=== PATIENT | female | born 1945 ===

== ENCOUNTER 2025-02-20 14:25 | Outpatient (AMB) | payer MEDICARE, OTHER, SELFPAY ==
--- OUTSIDE RECORDS SUMMARY | 2024-06-23 09:45 | XMS_ITS ---
Author Organization [facility] Address [address] [place] [address] Care Team Providers Care Manufacturing Helper Name Role Phone Neftali POSADAS, Franki Primary Care Provider Unavail Moshe Cevallos Unavailable [phone] Encounters Encounter Location Date Provider Diagnosis [facility] [address] [place] [id number] 06/23/2024 Moshe Ayon Plan Of Treatment Next Appt Details Provider Name:Moshe Ayon , 03/16/2025 02:00:00 PM, [address], [phone], Progress Notes * Charito PEREZ NDOB:1945 (79 yo F)Acc No.[id number]:06/23/2024 Progress Note Patient: Andreia CLINEtommy Shelley Provider: Lacey Ayon DPM :1945 A ge:79 Y S ex:Female Date:06/23/2024 Address:[address] [place], [place] [id number] Pcp:Franki Lindsay MD Subjective: * Chief Complaints: * * Medical History: Objective: * Vitals: Assessment: Plan: * Treatment: * Images: * The named appointment provid er may or may not be the originator of this progress note, and it is not deemed complete until electronically signed by the appointment provider. Sign off status: Pending * Provider: Lacey Ayon DPM Date: 08/24/2023 Generated for Denys rodgers/Henry/Sherryitting on: 0 02/20/2025 03:07 PM EDT
--- OUTSIDE RECORDS SUMMARY | 2025-02-20 15:07 | XMS_ITS | Clinical Summary ---
Author Organization [facility] [address] [facility] Address [address] [place] [address] Phone Care Team Providers Care Vocational Counselor Name Role Phone Franki Lindsay MD Primary Care Provider [phone] Social History Tobacco Use Types Packs/Day Years Used Date Smoking Tobacco: Never Assessed Comments Unknown Sex and Gender Information Value Date Recorded Sex Assigned at Not on file Legal Sex Female 8:42 AM EDT Gender Identity Not on file Sexual Orientation Not on file Plan of Treatment Health Maintenance Due Date Last Done Comments DTaP,Tdap,and Td Vaccines (1 - Tdap) 1966 Pneumococcal Vaccine: 50+ Ye ars (1 of 1 - PCV) 1997 Zoster Vaccines (1 of 2) 1997 RSV Immunization Adult Patie nts (1 - 1-dose 75+ series) 2022 COVID-19 Vaccine ( - 2023-2 5 season) 2024 Depression Screening 07/06/2024 Falls Risk Assessment 10/05/2024 Hepatitis C Screening 10/05/2024 Medicare Annual Wellness Visit 10/05/2024 Osteoporosis Screening (Bone Density Screening) 10/05/2024 Social Influencers of Health Screening 10/05/2024 Influenza Vaccine (#1) 2025 HIB Vaccines Aged Out No longer eligi ble based on patient's age to complete this topic HPV Vaccines Aged Out No longer eligi ble based on patient's age to complete this topic Hepatitis A Vaccines Aged Out No long er eligible based on patient's age to complete this topic Hepatitis B Vaccines Aged Out No long er eligible based on patient's age to complete this topic IPV Vaccines Aged Out No longer eligi ble based on patient's age to complete this topic MMR Vaccines Aged Out No longer eligi ble based on patient's age to complete this topic Meningococcal ACWY Vaccine Aged Out N o longer eligible based on patient's age to complete this topic Meningococcal B Vaccine Aged Out No l onger eligible based on patient's age to complete this topic RSV Immunization Patients Un jaden 20 months Aged Out No longer eligible b ased on patient's age to complete this topic Varicella Vaccines Aged Out No longer eligible based on patient's age to complete this topic Insurance MEDICARE [facility] MEDICARE Care Teams Vocational Counselor Relationship Specialty Start Date End Date Franki Lindsay MD [address] [place] [address] PCP - General Internal Medicine 10/05/24
== END 2025-02-20 14:28 | disposition home or self-care (01) ==
LOC: HO.HMGAL 14:25
PROVIDERS: Visit Provider Registered Nurse Emergency
DX: J30.89 Other allergic rhinitis (principal)
CPT/HCPCS: 95117; 95165

== ENCOUNTER 2025-04-10 13:42 | Outpatient (AMB) | payer MEDICARE, OTHER, SELFPAY ==
--- OUTSIDE RECORDS SUMMARY | 2025-03-16 10:00 | XMS_ITS ---
Author Organization [facility] Address [address] [place] [address] Care Team Providers Care Authorization Manager Name Role Phone Neftali POSADAS, Franki Primary Care Provider Moshe Leyva Unavailable [phone] REASON FOR VISIT Seen Sooner Encounters Encounter Location Date Provider Diagnosis [address] [phone] 03/16/2025 Moshe Ayon Plan Of Treatment Next Appt Details Provider Name:Fany Byerstommy blackman, 2025 02:45:00 PM, [address] [place] [address], [phone], Provider Name:Moshe Ayon , 08/30/2025 02:00:00 PM, [address] [place] [address], [phone], Progress Notes * Charito PEREZ NDOB:1945 (79 yo F)Acc No.[id number]:03/16/2025 Progress Note Patient: Andreia CLINEtommy Shelley Provider: Lacey Ayon DPM :1945 A ge:79 Y S ex:Female Date:03/16/2025 Address:[address] [place], [place] [phone] Pcp:Franki Lindsay MD Subjective: * Chief Complaints: * 1 . Seen Sooner. * Medical History: Objective: * Vitals: Assessment: Plan: * Treatment: * Images: * The named appointment provid er may or may not be the originator of this progress note, and it is not deemed complete until electronically signed by the appointment provider. Sign off status: Pending * Provider: Lacey Ayon DPM Date: 0 03/16/2025 Generated for Denys Franco on: 1 04:04 PM EDT
--- OUTSIDE RECORDS SUMMARY | 2025-04-05 07:15 | XMS_ITS ---
Author Organization [facility] Address [address] [place] [address] Care Team Providers Care Software Asset Manager Name Role Phone Neftali POSADAS, Franki Primary Care Provider Unavail able Moshe Ayon Unavailable [phone] Allergies Allergen (clinical drug ingredient) Drug/Non Drug Allergy documented on EMR Reaction Allergy Type Onset Date Status amoxicillin Amoxicillin rash, hives Drug Allergy A ctive atorvastatin Lipitor Unknown Drug Allergy Acti ve REASON FOR VISIT Wart(s), Foot pain Medications Medication SIG (Take, Route, Frequency, Duration) Notes Start Date End Date Status Multivitamins as directed Orally Active levETIRAcetam Active metFORMIN HCl 750 mg 1 tablet twice a day Active Claritin-D 12 Hour prn A ctive Clorazepate Dipotassium Active glipiZIDE ER Not-Gavin ing Sleep Aid prn Not-Taking Simvastatin 10 mg No t-Taking Rybelsus Active Januvia Not-Taking TEGretol Active Ammonium Lactate 12 % 1 application Exte rnally Twice a day; Duration: 30 days Active Somers 3 340 MG 1 capsule with meals Orally Three times a day; Duration: 30 day(s) Active Extra Depth Orthopedic Shoes (1 Pair) with Customized Heat Molded Multidensity Innersoles (3 Pair) as directed Dx: NIDDM (E11.9), Hammertoe Foot Deformity (M20.41,M20.42), Preulcerative Skin Lesion(s) (L85.1) 01/25/2024 Active Social History Tobacco Use: Social History Observation Description Date Details (start date - stop date) Never Smoker NA - NA Tobacco use other than smoking: Question Answer Notes Are you an other tobacco user? No Tobacco Control (Standard) Question Answer Notes Tobacco use: Nonsmoker Additional Findings: Tobacco non-user Current no nsmoker AUDIT-C (Standard) Question Answer Notes Did you have a drink containing alcohol in the p ast year? No Points 0 Interpretation Negative Vital Signs Height 5ft 6in in 04/05/2025 Weight 165 lbs 04/05/2025 BMI 26.63 kg/m2 04/05/2025 Blood pressure systolic 126 mm Hg 04/05/20 25 Blood pressure diastolic 60 mm Hg 025 Procedures Procedure Date Ordered Date Performed Result Body Sit e 28625-Zhla Destruction, 1-14 04/05/2025 N/A Encounters Encounter Location Date Provider Diagnosis [facility] [address] [place] [id number] 04/05/2025 Moshe Ayon Right foot pain M79. 671 ; Plantar wart B07.0 ; Pain in right ankle and joints of right foot M25.571 ; Bursitis of intermetatarsal bursa of right foot M77.51 and Metatarsalgia, right foot M77.41 Assessments Encounter Date Diagnosis (ICD Code) Assessment Notes Treatment Notes Treatment Clinical Notes Section Notes 04/05/2025 Right foot pain (ICD-10 - M79.671) 04/05/2025 Plantar wart (ICD-10 - B07.0) 04/05/2025 Pain in right ankle and joints of right foot (ICD-10 - M25.571) 04/05/2025 Bursitis of intermetatarsal bursa of right foot (ICD-10 - M77.51) 04/05/2025 Metatarsalgia, right foot (ICD-10 - M77.41) Plan Of Treatment Pending Test Test Name Order Date 38006-Agta Destruction, 1-14 04/05/2025 Next Appt Details Follow Up: prn, Reason: Provider Name:Fany blackman, 2025 02:45:00 PM, [address], [phone], Provider Name:Moshe Ayon , 08/30/2025 02:00:00 PM, [address], [phone], Procedure Notes * Category Sub-Category Detail Notes Wart Treatment Procedure Verruca, as desc ribed in exam, were debrided to pin- point bleeding margins with sterile 15 surgical blade, silver nitrate chemocautery applied, recomm. immune-boosting meds such as zinc, recomm. follow up with topical chemosurgical agents, recomm. Wartstick 40 percent Salicylic acid application under occlusion as directed, Pt defers any other forms of tx - 60239 Progress Notes * Charito PEREZ NDOB:1945 (79 yo F)Acc No.[id number]:04/05/2025 Progress Note Patient: Charito CLINE N Provider: Lacey Ayon DPM :1945 A ge:79 Y S ex:Female Date:04/05/2025 Address:[address] [place], [place] [phone] Pcp:Franki Lindsay MD Subjective: * Chief Complaints: * W art(s)Foot pain * HPI: S kin problems: Pt States PCP Visit: D ATE 0 01/03/2025 F oot Pain: Location: B ottom, Forefoot, RIGHT. Duration: s everal weeks. Course: w orse. Aggravated: a ny pressure, standing, walking. Treatments: r est/alter normal daily activity. * ROS: G eneral/Constitutional: Nausea d enies. V omiting d enies. H bhavesh Thirst d enies. L oss appetite d enies. C hills d enies. F atigue d enies.?Fever d enies. N ight Sweats d enies. U nexplained weight loss d enies. O phthalmologic: Blurred vision d enies. R ed eye d enies. ? H EENTM: Dentures d enies. D izziness d enies. G lasses/contacts d enies. R etinopathy d enies. B lurred/double vision d enies. T MJ?denies. D ischarge/drainage d enies. I mplants d enies. H aaron of hearing denies. D ifficulty chewing/swallowing/speaking d enies. N ose bleeds d enies.?Sore mouth d enies. S wollen glands d enies. R espiratory: On Oxygen d enies. P neumonia/pleurisy d enies.?Bronchitis d enies. E mphysema d enies. C oughing a dmits. C ough blood?denies. S hortness of breath d enies. W heezing d enies. C ardiovascular: Pacemaker d enies. M CLAIMS CORRESPONDENCE CLERK d enies. W PW d enies. C HF d enies. H eart attack d enies. S eptal defect d enies. R apid beat d enies. C hest pain d enies. A trial Fib. d enies. M urmur/Palpitations d enies. G astrointestinal: Hemorrhoids d enies. S tomach/Abdominal pain d enies. D ark blood stool d enies. I rritable bowel d enies. C onstipation d enies. D iarrhea d enies. V omiting d enies. H ematology: Swelling d enies. B ruising d enies. B leeding problem d enies. G enitourinary: Blood urine d enies. F requent/Painfu/urination/bladder control d enies. K idney stones d enies. I nfection (UTI) d enies. N ephropathy d enies. M usculoskeletal: Hammertoes a dmits. B unions a dmits. S coliosis/kyphosis d enies. M uscle cramps / walking d enies. G eneralized aches and pains?denies. W eakness d enies. I nteg.: Pederson d enies. S cars d enies. C orns/calluses?admits. I ngrown nails a dmits. P ainful nails a dmits. R ashes d enies. N eurologic: Difficulty sleeping d enies. B ipolar d enies. B rain disorder d enies. B alance trouble d enies. C onfusion d enies. F ainting/blackouts d enies. H eadache d enies. T remors d enies. * Medical History: * Surgical History: c esarean section * Hospitalization/Major Diagno stic Procedure: [facility] [place] [place] for having [place] [place] * Family History: M other: , poor circulation, diagnosed with Diabetic - NIDDM, Unspecified heart disease, Unspecified cerebral artery occlusion with cerebral infarction, Family history of arthritis. F ather: , diagnosed with Other malignant neoplasm of unspecified site. S on(s): alive.?Siblings: diagnosed with Other malignant neoplasm of unspecified site, Diabetic - NIDDM, Family history of arthritis. 1 son(s) . . * Social History: T obacco Use: T obacco use other than smoking A re you an other tobacco user? N o Tobacco Control (Standard) T obacco use: N onsmoker A dditional Findings: Tobacco non-user C urrent nonsmoker D rugs/Alcohol: D rugs H ave you used drugs other than those for medical reasons in the past 12 months? N o M iscellaneous: C affeine: yes, frequency:. Children: yes. Exercise: yes. Marital status: . Occupation: retired. D rug/Alcohol: A ALEXSANDER-C (Standard) D id you have a drink containing alcohol in the past year? N o P oints 0 I nterpretation N egative * Medications: T akingRybelsus Claritin-D 12 Hour , Notes to Pharmacist: prnClorazepate Dipotassium levETIRAcetam metFORMIN HCl 750 mg 1 tablet twice a day Multivitamins Capsule as directed Orally Somers 3 340 MG Capsule Delayed Release 1 capsule with meals Orally Three times a day TEGretol Ammonium Lactate 12 % Cream 1 application Externally Twice a day Extra Depth Orthopedic Shoes (1 Pair) with Customized Heat Molded Multidensity Innersoles (3 Pair) as directed Dx: NIDDM (E11.9), Hammertoe Foot Deformity (M20.41,M20.42), Preulcerative Skin Lesion(s) (L85.1) Taking Rybelsus Taking Claritin-D 12 Hour , Notes to Pharmacist: prnTaking Clorazepate Dipotassium Taking levETIRAcetam Taking metFORMIN HCl 750 mg 1 tablet twice a day Taking Multivitamins Capsule as directed Orally Taking Somers 3 340 MG Capsule Delayed Release 1 capsule with meals Orally Three times a day Taking TEGretol Taking Ammonium Lactate 12 % Cream 1 application Externally Twice a day Taking Extra Depth Orthopedic Shoes (1 Pair) with Customized Heat Molded Multidensity Innersoles (3 Pair) as directed Dx: NIDDM (E11.9), Hammertoe Foot Deformity (M20.41,M20.42), Preulcerative Skin Lesion(s) (L85.1) Not-Taking/PRNSimvastatin 10 mg glipiZIDE ER Sleep Aid prn Januvia Medication List reviewed and reconciled with the patientNot-Taking/PRN Simvastatin 10 mg Not-Taking/PRN glipiZIDE ER Not-Taking/PRN Sleep Aid prn Not-Taking/PRN Januvia Medication List reviewed and reconciled with the patient * Allergies: L ipitorAmoxicillin: rash, hivesyes[Allergies Verified] Objective: * Vitals: H t: 5ft 6in, Wt:165, BMI: 26.63, Shoe size:9.5, BP:126/60mm Hg, BS:not taken, Ht- cm: 167.64 cm, Wt-k.84 kg. * P ast Orders: L ab:HEMOGLOBIN A1C (GLYCOHEMOGLOBIN) (Order Date - 01/03/2025) (Collection Date & Time - 01/04/2025 01:06 PM) Value Reference Range HEMOGLOBIN A1C % (HH) 5.7 * Examination: O phthalmology Referral: DIABETES EYE EXAM P rocedure Performed: Y yevgeniy D ate of Exam Performed 0 09/08/2024 D iabetic Retinopathy Screening: Y es R etinal Screening Performed: Y es F indings of Diabetic Eye Exam: n o retinopathy D ermatologic: VERRUCA: C ont to reveal a Single , multi-loculated , mosaic, round, raised, flat-topped, petechial bleeding papule(s), with cauliflower appearance and interruption of skin lines, with pain to lateral compression, and size estimated at 5mm diameter, plantar Forefoot, RIGHT. O rthopedic: MUSCLE STRENGTH: 5 /5 all groups in a symmetrical fashion, B/L. GAIT ABNORMALITY: a ntalgic. MPJ PATHOLOGY: Pain, swelling, and inflammation to plantar ( 5th), MPJ(s), RIGHT, No MPJ pain with ROM, [ - ] Ecchymosis. FOOTWEAR EVALUATION: s hoe gear properties exacerbate patients complaints in relation to their foot/toe deformity. N eurological: TINEL'S COMPRESSION: Negative tarsal tunnel, balta pedis, and medial calcaneal nerves, Right. N euroma Pain: PALPATION: N o interspace pain noted on palpation. ? Assessment: * Assessment: 1. P lantar wart - B07.0 (Primary) S pecify :RIGHT 2 . R ight foot pain - M79.671 3 . P ain in right ankle and joints of right foot - M25.571 4 . B ursitis of intermetatarsal bursa of right foot - M77.51 5 . M etatarsalgia, right foot - M77.41 S pecify :Acute Problem, Uncomplicated (3) Plan: * Treatment: * Procedures: W art Treatment: Procedure V erruca, as described in exam, were debrided to pin-point bleeding margins with sterile 15 surgical blade, silver nitrate chemocautery applied, recomm. immune-boosting meds such as zinc, recomm. follow up with topical chemosurgical agents, recomm. Wartstick 40 percent Salicylic acid application under occlusion as directed, Pt defers any other forms of tx - 95782. * Procedure Codes: 1 7110 Wart Destruction, 1-14 * Preventive Medicine: Counseling: D iscussion: - 13: Office or other outpatient visit for the evaluation and management of an established patient, which required a medically appropriate history and/or examination and LOW level of DECISION MAKING for: 1 STABLE ACUTE UNCOMPLICATED PROBLEM, 2 OR MORE MINOR PROBLEMS, OR 1 STABLE CHRONIC PROBLEM, THAT POSE(S) A LOW RISK FOR MORBIDITY/MORTALITY. The visit on the day of the encounter encompassed interpreting the data and educating the patient as to the nature of their condition, treatment options available according to their individual PMH, meds, allergies, and overall health/living conditions, as well as any potential risks or complications that may occur from a failure to adhere to, and participate in, the recommended course of therapy. The discussion included a complete verbal, and/or written explanation of the examination results, any x-rays taken, the proposed diagnosis, and outline of the treatment plan. A schedule for future care needs was also explained. The patient verbalized an understanding of the instructions at this time and agreed to be an active participant in their treatment. If the patient should think of any questions or concerns after the visit, I have encouraged the patient to call the office. M etatarsalgea: I explained to the patient the possible etiologies of their Metatarsalgea Foot pain, including foot type/shoegear/activity level/exercise routine and the risks/benefits of all the different treatment options for pain including: No treatment at all, Rest, Ice, NSAIDs(only if well tolerated after meals), New/supportive Shoe gear, Strappings and Tapings, Foot/Ankle AFO Bracing, Stretching exercises, Deep Tissue Massage, Arch support/shoe inserts, Custom orthoses, Topical analgesics including Aspercream/Voltaren gel, Physical Therapy, Cortisone injection therapy, EPAT/ESWT. Advantages and disadvantages of each option were discussed and the patients questions re: shoe gear, custom vs prefabricated inserts, activity level, PO vs Topical medications (and their respective potential complications/drug interactions/side effects), and consistency in home treatment regimens for optimal success were answered to their verbally confirmed satisfaction. O rthotics: I explained to the patient the benefits of OT use. I explained that orthoses are medically necessary to decrease the foot pain through proper mechanical control, support of their foot, decrease pain under the painful metatarsal by supplementing the soft tissue, cushion the forefoot by supplementing the soft tissue, Prefabricated orthoses ( FREEDOM - C ), were dispensed. The inserts were comfortably fit to the patients feet in both weight-bearing and non-weight bearing attitudes. The patient was instructed to increase the amount of time they were wearing the inserts, starting with one hour the first day and gradually increasing the amount of time worn until they are using them multimedia manager and in all activities. They were asked to call the office if any signs of irritation were noted such as redness, blistering or callous formation. Instuctions were given for their usage and proper break-in/wear/care. Pt expressed comfort with and tolerance to inserts dispensed. P .R.I.C.E.: T he patient was counseled on the use of P.R.I.C.E. and NSAIDS (if well tolerated) to aid in the recovery from their painful condition, Recommended Topical analgesics including Aspercream/Biofreeze/Voltaren gel as directed. P odiatric Surgery Counseling: S urgical procedures to treat the patients foot problem were discussed. We reviewed the risks of the procedure (described below) vs not having the procedure (persistent pain, deformity, risk for skin ulceration/infection, loss of toe). We discussed the potential procedure complications including, but not limited to: pain, swelling, bleeding, scarring, numbness, infection, delayed/non healing, floppy/unstable/shorthened toe, recurrence, failure of the procedure, overcorrection leading to plantarflexed/downward positioned toe, recurrence, need for further surgery, as well as the possibility for loss of the toe itself. We discussed the use of IV/Local anesthesia, and the usual post-op course for healing. No guarentees were given. The patient verbally indicated a full understanding of the above conversation, and any other of their questions were answered to their satisfaction. S hoe Gear Counseling: T he patient and I reviewed the types of shoes they should be wearing. My recommendation included obtaining a well-fitted shoe with a good supportive, non-foldable nor twistable sole, plenty of toe/room for the forefoot, and proper arch support. Based on todays examination, I recommended the patient look for new shoes, by having their feet professionally measured. We discussed that generally the best time of the day for a shoe fitting is the afternoon. Different shoes types and brands to best match the patients occupation and vocation were discussed. Specific brand selection will be up to the patient, their individual foot condition/deformities, and fit. The patient and I reviewed the standard new shoe break in period by wearing them for a few hours a day while checking for redness or sores as wear time is increased. The patient verbally confirmed to understanding the information discussed. S teriod Injection: I explained that a steroid and local anesthetic injections are administered to relieve pain and inflammation and thereby meant to improve function. I explained the possible complications including but not limited to signs/symptoms of steroid flare, infection, bruising, atrophy, discoloration of skin, change/deviation in toe position, and that additional injections may be necessary, cortisone post- injection informative educational handout was dispensed to and reviewed with the patient, In order to prevent any compromise of an effective immune response, it was recommended the patient refrain from any vaccine therapy for the month before or after injection. Patient verbally confirmed understanding the previously mentioned protocol. Screening/Special Tests: F all Risk Screening: N o falls in the past year F ALLS: Screening for Future Fall Risk Have you had any falls with injury in the past year? N o * Follow Up: p rn * Images: * Sign off status: Completed true * Provider: Lacey Ayon DPM Date: Generated for Denys rodgers/Henry/Zahraa on: 04:05 PM EDT History and Physical Notes * HPI (History of Present Illness) Category Sub-Category Detail Notes Category Not es Skin problems Pt States PCP Visit: DATE: 01/03/2025 Foot Pain Location: Bottom, Forefoot, RIGHT Duration: several weeks Course: worse Aggravated: any pressure, standi ng, walking Treatments: rest/alter normal da bennett activity Examination Category Sub-Category Detail Notes Category Not es Neuroma Pain PALPATION: No interspace pa in noted on palpation Neurological TINEL'S COMPRESSION: Negative ta rsal tunnel, balta pedis, and medial calcaneal nerves, Right Dermatologic VERRUCA: Cont to reveal a Single , multi-loculated , mosaic, round, raised, flat-topped, petechial bleeding papule(s), with cauliflower appearance and interruption of skin lines, with pain to lateral compression, and size estimated at 5mm diameter, plantar Forefoot, RIGHT Orthopedic GAIT ABNORMALITY: antalgic FOOTWEAR EVALUATION: shoe gear propertie s exacerbate patients complaints in relation to their foot/toe deformity MPJ PATHOLOGY: Pain, swelling, and inflammation to plantar ( 5th), MPJ(s), RIGHT, No MPJ pain with ROM, [ - ] Ecchymosis MUSCLE STRENGTH: 5/5 all groups in a symmetrical fashion, B/L Ophthalmology Referral DIABETES EYE EXAM Procedure Perform ed:: Yes Date of Exam Performed: 09/08/2024 Diabetic Retinopathy Screening:: Yes Retinal Screening Performed:: Yes Findings of Diabetic Eye Exam:: no retin opathy
--- OUTSIDE RECORDS SUMMARY | 2025-04-10 16:05 | XMS_ITS | Patient Health Record ---
Author Organization [facility] Address [address] [place] [address] Care Team Providers Care Speaking Unit Assembler Name Role Phone Neftali POSADAS, Franki Primary Care Provider Unavail able Moshe Ayon Unavailable [phone] Fany Crooks Unavailable [phone] Allergies Allergen (clinical drug ingredient) Drug/Non Drug Allergy documented on EMR Reaction Allergy Type Onset Date Status amoxicillin Amoxicillin rash, hives Drug Allergy A ctive atorvastatin Lipitor Unknown Drug Allergy Acti ve Results Component Value Reference Range Notes HEMOGLOBIN A1C (GLYCOHEMOGLO BIN) Reviewed date:09/21/2024 01:02:28 PM Interpretation: Performing Lab: Notes/Report: HEMOGLOBIN A1C % (HH) 5.7 HEMOGLOBIN A1C (GLYCOHEMOGLO BIN) Reviewed date:02/21/2025 01:06:55 PM Interpretation: Performing Lab: Notes/Report: HEMOGLOBIN A1C % (HH) 5.7 Reason For Referral No Information Medications Medication SIG (Take, Route, Frequency, Duration) Notes Start Date End Date Status Rybelsus Active levETIRAcetam Active metFORMIN HCl 750 mg 1 tablet twice a day Active Claritin-D 12 Hour prn A ctive Clorazepate Dipotassium Active TEGretol Active Ammonium Lactate 12 % 1 application Exte rnally Twice a day; Duration: 30 days Active Multivitamins as directed Orally Active [place] 3 340 MG 1 capsule with meals Orally Three times a day; Duration: 30 day(s) Active glipiZIDE ER Not-Gavin ing Sleep Aid prn Not-Taking Extra Depth Orthopedic Shoes (1 Pair) with Customized Heat Molded Multidensity Innersoles (3 Pair) as directed Dx: NIDDM (E11.9), Hammertoe Foot Deformity (M20.41,M20.42), Preulcerative Skin Lesion(s) (L85.1) 01/25/2024 Active Simvastatin 10 mg No t-Taking Januvia Not-Taking Immunizations Vaccine Route Administration Date Status Comme nts Influenza Unknown 04/05/2015 Administered Influenza Unknown 05/20/2016 Administered Influenza Unknown 05/14/2017 Administered Influenza Unknown 04/19/2018 Refused Influenza Unknown 05/14/2018 Administered Influenza Unknown 02/21/2025 Refused Pneumococcal Unknown 04/05/2015 Administered COVID-19 Pfizer BioNTech Vaccine Unknown 10/10/2020 Adm inistered Social History Tobacco Use: Social History Observation [...] ast year? No Points 0 Interpretation Negative Problems Problem Type SNOMED Code ICD Code Onset Dates Problem Status W/U Status Risk Notes Problem Acquired hammer toe of right foot (250542875686049 5) Other hammer toe(s) (acquired), right foot (M20.41) Active confirmed Problem Acquired hammer toe of left foot (099290823134530 3) Other hammer toe(s) (acquired), left foot (M20.42) Active confirmed Problem Type II diabetes mellitus without complication (299115365) Type 2 diabetes mellitus without complication (E11.9) Active confirmed Problem Verruca pedis (81939054) Verruca pedis (B07.0) Active confirmed Vital Signs Heart Rate 91 /min 12/15/2024 Blood pressure diastolic 60 mm Hg 04/05/2025 Height 5ft 6in in 04/05/2025 Blood pressure systolic 126 mm Hg 04/05/2025 Weight 165 lbs 04/05/2025 BMI 26.63 kg/m2 04/05/2025 Procedures Procedure Date Ordered Date Performed Result Body Sit e 39767-WWLVZRV NAIL, 6 OR MORE 06/13/2024 N/A 39869-Nsjh Destruction, 1-14 06/13/2024 N/A 03769-BDUUTMO NAIL, 6 OR MORE 09/21/2024 N/A 11254-Prfu Destruction, 1-14 09/21/2024 N/A 98608-ZKYXVMA NAIL, 6 OR MORE 12/15/2024 N/A 80379-Kzii Destruction, 1-14 12/15/2024 N/A 26487-ZCHDMGK NAIL, 6 OR MORE 02/21/2025 N/A 00880-Ytxv Destruction, 1-14 02/21/2025 N/A 51467-Swvo Destruction, 1-14 04/05/2025 N/A Encounters Encounter Location Date Provider Diagnosis [address] [address] 06/13/2024 Moshe Nany Pain of toe of right foot M79.674 ; Onychomycosis B35.1 ; Pain of toe of left foot M79.675 ; Type 2 diabetes mellitus without complication E11.9 ; Verruca pedis B07.0 and Right foot pain M79.[address] [address] 09/21/2024 Moshe Nany Pain of toe of right foot M79.674 ; Onychomycosis B35.1 ; Pain of toe of left foot M79.675 ; Type 2 diabetes mellitus without complication E11.9 ; Verruca pedis B07.0 ; Right foot pain M79.671 ; Other hammer toe(s) (acquired), right foot M20.41 and Other hammer toe(s) (acquired), left foot M20.[address] [address] 12/15/2024 Moshe Nany Pain of toe of right foot M79.674 ; Pain of toe of left foot M79.675 ; Onychomycosis B35.1 ; Type 2 diabetes mellitus without complication E11.9 ; Verruca pedis B07.0 and Right foot pain M79.[address] [address] 02/21/2025 Fany Crooks Pain of toe of right foot M79.674 ; Pain of toe of left foot M79.675 ; Onychomycosis B35.1 ; Type 2 diabetes mellitus without complication E11.9 ; Verruca pedis B07.0 and Right foot pain M79.671 [facility] [address] [facility] [address] [place] [address] 04/05/2025 Moshefarrah CarmonaNany Right foot pain M79.671 ; Plantar wart B07.0 ; Pain in right ankle and joints of right foot M25.571 ; Bursitis of intermetatarsal bursa of right foot M77.51 and Metatarsalgia, right foot M77.41 [facility] [place] [address] [place] [address] 05/06/2024 Moshe Ayon Assessments Encounter Date Diagnosis (ICD Code) Assessment Notes Treatment Notes Treatment Clinical Notes Section Notes 06/13/2024 Pain of toe of right foot (ICD-10 - M79.674) 12/15/2024 Pain of toe of right foot (ICD-10 - M79.674) 02/21/2025 Pain of toe of right foot (ICD-10 - M79.674) 04/05/2025 Plantar wart (ICD-10 - B07.0) 04/05/2025 Right foot pain (ICD-10 - M79.671) 09/21/2024 Pain of toe of right foot (ICD-10 - M79.674) 09/21/2024 Pain of toe of left foot (ICD-10 - M79.675) 09/21/2024 Onychomycosis (ICD-10 - B35.1) 04/05/2025 Pain in right ankle and joints of right foot (ICD-10 - M25.571) 02/21/2025 Pain of toe of left foot (ICD-10 - M79.675) 02/21/2025 Onychomycosis (ICD-10 - B35.1) 12/15/2024 Onychomycosis (ICD-10 - B35.1) 12/15/2024 Pain of toe of left foot (ICD-10 - M79.675) 06/13/2024 Pain of toe of left foot (ICD-10 - M79.675) 06/13/2024 Onychomycosis (ICD-10 - B35.1) 06/13/2024 Type 2 diabetes mellitus without complication (ICD-10 - E11.9) 12/15/2024 Type 2 diabetes mellitus without complication (ICD-10 - E11.9) 02/21/2025 Type 2 diabetes mellitus without complication (ICD-10 - E11.9) 04/05/2025 Bursitis of intermetatarsal bursa of right foot (ICD-10 - M77.51) 09/21/2024 Type 2 diabetes mellitus without complication (ICD-10 - E11.9) 09/21/2024 Verruca pedis (ICD-10 - B07.0) 04/05/2025 Metatarsalgia, right foot (ICD-10 - M77.41) 02/21/2025 Verruca pedis (ICD-10 - B07.0) 12/15/2024 Verruca pedis (ICD-10 - B07.0) 06/13/2024 Verruca pedis (ICD-10 - B07.0) 06/13/2024 Right foot pain (ICD-10 - M79.671) 02/21/2025 Right foot pain (ICD-10 - M79.671) 12/15/2024 Right foot pain (ICD-10 - M79.671) 09/21/2024 Right foot pain (ICD-10 - M79.671) 09/21/2024 Other hammer toe(s) (acquired), right foot (ICD-10 - M20.41) Patient Educated with: DIABETIC FOOT CARE INSTRUCTIONS. pdf (DIABETIC FOOT CARE INSTRUCTIONS. pdf) 09/21/2024 Other hammer toe(s) (acquired), left foot (ICD-10 - M20.42) 06/13/2024 Other Plan Of Treatment Pending Test Test Name Order Date Hemoglobin A1c 10/04/2014 09187-FCZQBGJ NAIL, 6 OR MORE 04/04/2015 59922-JAOUPZI NAIL, 6 OR MORE 10/04/2014 83113-WOCWEYM NAIL, 6 OR MORE 08/06/2015 29460-SVFWKUG NAIL, 6 OR MORE 05/21/2016 36700-KLZLAFP NAIL, 6 OR MORE 11/19/2016 82892-JDKOUOK NAIL, 6 OR MORE 02/18/2017 96315-FIPLMVL NAIL, 6 OR MORE 05/20/2017 62481-JWGHNTP NAIL, 6 OR MORE 08/19/2017 34088-ILUVPUN NAIL, 6 OR MORE 11/04/2017 05979-HJXXQSA NAIL, 6 OR MORE 01/27/2018 86774-XRPUVMF NAIL, 6 OR MORE 04/09/2011 95346-LOSZPOT NAIL, 6 OR MORE 10/08/2011 87792-GFEPPLV NAIL, 6 OR MORE 09/22/2012 56170-UZFRLRB NAIL, 6 OR MORE 03/23/2013 80363-HLYBEEF NAIL, 6 OR MORE 06/22/2013 70685-BSEZNLF NAIL, 6 OR MORE 12/24/2011 07355-ADORGCO NAIL, 6 OR MORE 12/21/2013 93320-QTWLKNO NAIL, 6 OR MORE 04/05/2014 19386-INDEAYC NAIL, 6 OR MORE 07/12/2014 12472-EOAQNCU NAIL, 6 OR MORE 07/22/2018 61339-TATCSZW NAIL, 6 OR MORE 12/06/2018 00346-QYUVMGM NAIL, 6 OR MORE 02/16/2019 25240-GWKUYLK NAIL, 6 OR MORE 05/04/2019 87592-KEXUATG NAIL, 6 OR MORE 07/20/2019 29926-KKEXBIV NAIL, 6 OR MORE 12/07/2019 57469-LZPSAVG NAIL, 6 OR MORE 02/23/2020 25284-MNMRWEQ NAIL, 6 OR MORE 05/03/2020 02000-OKRHYUS NAIL, 6 OR MORE 07/18/2020 74103-YZHNIEX NAIL, 6 OR MORE 10/31/2020 91013-OWSDDOC NAIL, 6 OR MORE 01/09/2021 84277-AXOVPAX NAIL, 6 OR MORE 04/10/2021 25109-TGNCXDI NAIL, 6 OR MORE 06/12/2021 60748-QSDMFVI NAIL, 6 OR MORE 08/28/2021 78938-QNHZODE NAIL, 6 OR MORE 11/06/2021 54060-QOORALP NAIL, 6 OR MORE 03/26/2022 49296-TYYPSFY NAIL, 6 OR MORE 06/05/2022 22167-VYRKHTO NAIL, 6 OR MORE 08/18/2022 23850-MCMTYXG NAIL, 6 OR MORE 11/03/2022 63233-TENUQVX NAIL, 6 OR MORE 06/11/2023 13995-YYPNDSB NAIL, 6 OR MORE 09/21/2024 88165-HFONAGA NAIL, 6 OR MORE 12/15/2024 61104-CHAWCXL NAIL, 6 OR MORE 02/21/2025 67220-FHOHMYR NAIL, 6 OR MORE 09/23/2018 66950-QORVRZW NAIL, 6 OR MORE 04/19/2018 38882-OFZFUFT NAIL, 6 OR MORE 02/20/2016 73211-RRPQQLI NAIL, 6 OR MORE 11/21/2015 05765-PDZVDHA NAIL, 6 OR MORE 09/28/2013 46592-EQAYJHH NAIL, 6 OR MORE 12/22/2012 98350-YWXXZAA NAIL, 6 OR MORE 06/23/2012 48104-SDSSHKF NAIL, 6 OR MORE 03/24/2012 19478-USSSZXQ NAIL, 6 OR MORE 07/09/2011 53455-YMWPKQB NAIL, 6 OR MORE 01/15/2022 74014-CAFTVLO NAIL, 6 OR MORE 01/12/2023 69364-UMMEEKK NAIL, 6 OR MORE 06/13/2024 70063-AKXYTLK NAIL, 6 OR MORE 08/26/2023 21648-HAJYCQV NAIL, 6 OR MORE 08/20/2016 74103-AOVNMNL NAIL, 6 OR MORE 01/03/2015 03627-KGJTJLK NAIL, 6 OR MORE 01/25/2024 24729-KJASFNN NAIL, 6 OR MORE 03/23/2023 39342-Byhn Destruction, -03/23/2023 08922-Ghtv Destruction, -01/25/2024 38668-Ztxr Destruction, -01/03/2015 52524-Qpci Destruction, -08/20/2016 67631-Wgwd Destruction, -08/26/2023 67904-Xmmv Destruction, -06/13/2024 96617-Lawn Destruction, 07-1901/12/2023 47949-Lxka Destruction, -09/28/2013 52165-Cevp Destruction, -14 07/09/2011 07207-Necr Destruction, -01/15/2022 20147-Bnju Destruction, -03/24/2012 65524-Ghll Destruction, 07-1906/23/2012 66861-Rwyl Destruction, 07-1912/22/2012 19317-Qvcn Destruction, 07-1908/28/2021 55877-Wuyx Destruction, 07-1904/19/2018 52570-Fmpq Destruction, 07-1911/21/2015 75140-Ngfh Destruction, 07-1902/20/2016 75611-Sngl Destruction, 07-1909/23/2018 19476-Lcne Destruction, 07-1902/21/2025 21376-Fxcn Destruction, 07-1904/05/2025 53939-Uoya Destruction, 07-1912/15/2024 16272-Cmky Destruction, 07-1909/21/2024 12614-Yjfw Destruction, 07-1906/11/2023 81021-Cxfp Destruction, 07-1911/03/2022 80686-Cecs Destruction, 07-1908/18/2022 78957-Bydg Destruction, 07-1906/05/2022 21776-Zshr Destruction, 07-1907/10/2022 77839-Sgen Destruction, 07-1903/26/2022 38333-Togl Destruction, 07-1911/06/2021 52650-Laip Destruction, 07-1904/10/2021 60764-Fcgi Destruction, 07-1906/12/2021 74999-Weet Destruction, 07-1910/31/2020 47613-Tlyv Destruction, 07-1901/09/2021 67039-Cpyl Destruction, 07-1905/03/2020 77485-Zvdk Destruction, 07-1907/18/2020 71836-Gwmh Destruction, 07-1902/23/2020 43752-Ulpq Destruction, 07-1912/07/2019 64353-Yqjr Destruction, 07-1907/20/2019 50521-Bhvz Destruction, 07-1905/04/2019 46194-Otrw Destruction, 07-1902/16/2019 27093-Xdvp Destruction, 07-1907/22/2018 59996-Ydvj Destruction, 07-1912/06/2018 04600-Goif Destruction, 07-1907/12/2014 22792-Grom Destruction, 07-1912/21/2013 89626-Tyta Destruction, 07-1912/24/2011 07051-Jmlb Destruction, 07-1906/22/2013 82799-Looo Destruction, 07-1903/23/2013 07485-Fcyn Destruction, 07-1909/22/2012 83571-Btgc Destruction, 07-1910/08/2011 45393-Zuaf Destruction, 07-1911/19/2016 55753-Pmcv Destruction, 07-1901/27/2018 01186-Vqgl Destruction, 07-1911/04/2017 45924-Mpzg Destruction, 07-1908/19/2017 84267-Nelg Destruction, 07-1905/20/2017 61371-Xgbw Destruction, 07-1902/18/2017 09599-Ujca Destruction, 07-1904/09/2011 66944-Tqio Destruction, 07-1908/06/2015 81115-Hjqz Destruction, 07-1905/21/2016 51365-Huwh Destruction, 07-1910/04/2014 68589-Poys Destruction, 07-1904/05/2014 33236-Alpq Destruction, 07-1904/04/2015 20598-Thnrwtgd Plate 04/04/2015 93291-Auyrqvfb Plate 10/04/2014 67666-Ngsedjln Plate 08/06/2015 96898-Fhmxzjuc Plate 05/21/2016 42777-Hnmboujp Plate 01/27/2018 89990-Onmcjmga Plate 07/22/2018 04273-Trklvjbz Plate 04/09/2011 12532-Bewtdqru Plate 10/08/2011 97032-Rwfulpex Plate 09/22/2012 43495-Cuylqura Plate 03/23/2013 37352-Rojbaoki Plate 06/22/2013 64705-Xnuhdmuo Plate 12/24/2011 18289-Grrrsilu Plate 12/21/2013 02679-Ydtdtqid Plate 04/05/2014 64623-Irbtbenh Plate 07/12/2014 89330-Ztijktev Plate 12/06/2018 11285-Vdfkjdoy Plate 02/23/2020 18380-Hbagqynh Plate 05/03/2020 61293-Nhdnbgoz Plate 07/18/2020 09589-Mbchamuk Plate 01/09/2021 91617-Hdesajql Plate 10/31/2020 55046-Zhjuigxr Plate 04/10/2021 72106-Vfwpirom Plate 06/12/2021 49426-Sbgfoice Plate 11/06/2021 84523-Bbfzgexd Plate 08/28/2021 97832-Anmdtrhs Plate 03/26/2022 41732-Ltdqqswe Plate 04/19/2018 94771-Bawroqoy Plate 09/23/2018 93098-Yhvmells Plate 02/20/2016 90134-Yyyllqnk Plate 11/21/2015 53073-Nrpeelna Plate 09/28/2013 49157-Ixjzqvbg Plate 12/22/2012 64446-Lyxpzoyr Plate 06/23/2012 76874-Nigxgmmo Plate 03/24/2012 46791-Pfbscmrq Plate 01/15/2022 51057-Tatkgyne Plate 08/20/2016 03836-Ahibahiq Plate 01/03/2015 55568-Vdolonia Plate 01/25/2024 84005-Ypuaiigu Plate Each Additional 07/2014 76338-Wpfiymwk Plate Each Additional 19190-Nbueljpx Plate Each Additional 39945-Pglmldoz Plate Each Additional 04107-Rewcfpwf Plate Each Additional 37718-Oezcbwtg Plate Each Additional 61234-Epdtlmce Plate Each Additional 43740-Sydninlo Plate Each Additional 01/2015 85418-Czwytxtr Plate Each Additional 07/2013 07573-Ullzbfma Plate Each Additional 87188-Zrnkzlbv Plate Each Additional 96864-Yuvszgdg Plate Each Additional 21249-Sxgaxluz Plate Each Additional 47346-Ymutogmn Plate Each Additional 65322-Ckqtbttb Plate Each Additional 07/2015 89769-Mmvvmiwd Plate Each Additional 07/2014 76482-Sbqjgldb Plate Each Additional 95793- Debride <25 sq cm 04/04/2015 11415- Debride <25 sq cm 04/05/2014 33643- Debride <25 sq cm 10/04/2014 55273- Debride <25 sq cm 12/21/2013 10004- Debride <25 sq cm 07/12/2014 85943- Debride <25 sq cm 01/03/2015 19744-IHGK SKIN LESIONS, 2 TO 4 11/17/19 15533-DSSY SKIN LESIONS, 2 TO 4 03/29/20 Next Appt Details Provider Name:Fany blackman, 2025 02:45:00 PM, [address] [facility], [place] [address], [place], [address], Provider Name:Moshe Carmonaunier , 08/30/2025 02:00:00 PM, [address] [facility], [place] [address], [place], [address], Insurance Providers Payer Name Payer Address Payer Phone Subscriber Number Group Number Insured Name Patient Relationship to Insured Coverage Start Date Coverage End Date Medicare National [employer] [address] [facility] [place] [address] [id number] Charito Perez Self - patient is the insured [address] [place] [address] DALJIT Esteban [id number] [phone] [id number] Charito Perez Self - patient is the insured Medical (General) History Medical History History ICD Code epilepsy hypercholesterolemia Diabetic Surgical History Surgery Date(Month/Year) section Hospitalization History Reason Date(Month/Year) [facility] - PCP's office taken by ambulance fo r having seizures 09/11/14 [facility] - seizures 08/21/14 [facility]- seizure 10/2021
--- OUTSIDE RECORDS SUMMARY | 2025-04-10 16:05 | XMS_ITS | Clinical Summary ---
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 Name Role Phone Franki Lindsay MD Primary Care Provider [phone] Social History Tobacco Use Types Packs/Day Years [...] nts (1 - 1-dose 75+ series) 2022 Depression Screening 07/06/2024 Falls Risk Assessment 10/05/2024 Hepatitis C Screening 10/05/2024 Medicare Annual Wellness Visit 10/05/2024 Osteoporosis Screening (Bone Density Screening) 10/05/2024 Social Influencers of Health Screening 10/05/2024 COVID-19 Vaccine ( - 2023-2 5 season) 2025 Influenza Vaccine (#1) 2025 HIB Vaccines Aged [...] age to complete this topic Insurance MEDICARE [facility] MEDICARE Care Teams Steam Shovel Operating Engineer Relationship Specialty Start Date End Date Franki Lindsay MD [address] [place] [address] PCP - General Internal Medicine 10/05/24
== END 2025-04-10 13:43 | disposition home or self-care (01) ==
LOC: HO.HMGAL 13:42
PROVIDERS: PCP Pediatrics; Visit Provider Registered Nurse Emergency
DX: J30.89 Other allergic rhinitis (principal)
CPT/HCPCS: 95117; 95165

== ENCOUNTER 2025-05-22 14:13 | Outpatient (AMB) | payer MEDICARE, OTHER, SELFPAY | END 2025-05-22 14:13 | disposition home or self-care (01) | LOC: HO.HMGAL 14:13 | PROVIDERS: PCP Pediatrics; Visit Provider Registered Nurse Emergency | DX: J30.89 Other allergic rhinitis (principal) | CPT/HCPCS: 95117; 95165 ==